=== PATIENT | male | born 1965 | race African-American/Black ===

== ENCOUNTER → 2023-11-05 | Outpatient (CLI) | payer BC ==
[2023-11-05 11:09] LABS: BASOPHILS % 0.5 % (0.0-2.0); EOSINOPHILS % 2.8 % (0.0-5.0); HEMATOCRIT. 46.1 % (42.0-52.0); HEMOGLOBIN. 15.7 g/dL (14.0-18.0); LYMPHOCYTES % 39.2 % (20.0-50.0); MEAN CORPUSCULAR HEMOGLOBIN 27.5 pg (28.0-32.0); MEAN CORPUSCULAR VOLUME 81.1 fL (80.0-94.0); MEAN PLATELET VOLUME 7.8 fl (7.4-10.4); MONOCYTES % 5.5 % (2.0-8.0); PLATELET 196 x1000/uL (130-400); RED BLOOD CELL COUNT 5.69 mill/uL (4.7-6.1); RED CELL DISTRIBUTION WIDTH 14.4 % (11.6-14.6); WHITE BLOOD COUNT 7.1 x1000/uL (4.5-11.0)
[2023-11-05 11:17] LABS: CHLORIDE 99 mEq/L (98-107); POTASSIUM 4.2 mEq/L (3.5-5.1); SODIUM 133 mEq/L (136-145)
[2023-11-05 11:19] LABS: CARBON DIOXIDE 29 mEq/L (21-32)
[2023-11-05 11:24] LABS: CREATININE 1.1 mg/dL (0.6-1.3); GLUCOSE 175 mg/dL (70-105); UREA NITROGEN BLOOD 14 mg/dL (9-23)
[2023-11-05 11:25] LABS: ALANINE AMINOTRANSFERASE 50 IU/L (10-49); ALBUMIN 5.1 g/dL (3.2-4.8); ASPARTATE AMINOTRANSFERASE 27 IU/L (<34)
[2023-11-05 11:26] LABS: BILIRUBIN TOTAL 0.8 mg/dL (0.1-1.0); PROTEIN TOTAL 8.5 g/dL (6.0-8.3)
[2023-11-05 11:33] LABS: C REACTIVE PROTEIN HIGH SENS 0.26 mg/l (<1.00)
[2023-11-05 11:48] LABS: ERYTHROCYTE SEDIMENTATION RATE 3 mm/hr (0-20)
[2023-11-09 13:12] LABS: ATYPICAL pANCA <1:20 titer (Neg:<1:20); CYTOPLASMIC C-ANCA <1:20 titer (Neg:<1:20); PERINUCLEAR P-ANCA <1:20 titer (Neg:<1:20); SACCHAROMYCES CEREVISIAE IGG <20.0 Units (0.0-24.9); SACCHAROMYCES CEREVISIAE IGM <20.0 Units (0.0-24.9)
[2023-11-09 19:10] LABS: ANTI-MYELOPEROXIDASE AB < 0.2 units (0.0-0.9); ANTI-PROTEINASE 3 ABS < 0.2 units (0.0-0.9)
== END | disposition home or self-care (01) ==
LOC: LAB 10:39
PROVIDERS: ATTEND Internal Medicine Gastroenterology
DX: I10 Essential (primary) hypertension (principal); R73.09 Other abnormal glucose; K64.9 Unspecified hemorrhoids
CPT/HCPCS: 36415; 80053; 83036; 83520; 85025; 85651; 86141; 86256; 86671

== ENCOUNTER → 2025-01-19 | Outpatient (CLI) | payer BC | END | disposition home or self-care (01) | LOC: CARD 10:26 | PROVIDERS: ATTEND Internal Medicine | DX: I08.2 Rheumatic disorders of both aortic and tricuspid valves (principal); I11.9 Hypertensive heart disease without heart failure; R00.0 Tachycardia, unspecified | CPT/HCPCS: 93306 ==